=== PATIENT | male | born 1940 | race Caucasian/White ===

== ENCOUNTER 2017-10-20 12:12 | Observation (INO) | payer OTHER ==
[2017-10-20 13:01] LABS: Protime INR 0.99
[2017-10-20 13:11] LABS: Potassium 4.4 mEq/L (3.6-5.0)
[2017-10-20 13:17] LABS: Albumin 4.2 g/dL (3.2-5.5); Bilirubin Direct 0.1 mg/dL (0-0.2); Bilirubin Total 0.8 mg/dL (0.3-1.2); Magnesium 2.1 mg/dL (1.8-2.5); Protein, Total 7.2 g/dL (6.0-8.3)
[2017-10-20 13:41] LABS: Absolute Lymphocytes (CBC) 1.1 K/uL (0.7-4.9); Absolute Monocytes 0.7 K/uL (0.1-1.3); Basophils % 0.5 % (0-1.3); Eosinophils % 0.3 % (0-4.4); Hematocrit 41.6 % (39.6-49.0); Lymphocytes % 12.6 % (15.3-44.8); MCH 29.8 pg (27.0-35.0); MCV 90.5 fL (80-100); MPV 8.6 fL (7.6-11.3); Monocytes % 7.6 % (3.3-12.3)
--- NOTE | 2017-10-20 14:29 | RAD REPORT ---
EXAM DESCRIPTION: CT - Abdomen Pelvis W Contrast - 10/20/2017 2:00 pm CLINICAL HISTORY: Abdominal pain, nausea and vomiting COMPARISON: None. TECHNIQUE: Biphasic, helical CT imaging of the abdomen and pelvis was performed following 100 ml non -ionic IV contrast. Oral contrast was given. All CT scans are performed using dose optimization technique as appropriate and may include automated exposure control or mA/KV adjustment according to patient size. FINDINGS: No mass or infiltrate in the lung bases. No pericardial effusion. There is a trace amount of pleural thickening and parenchymal scarring. Liver and spleen show no suspicious parenchymal lesions. Numerous benign granulomatous type calcifica tions are present. No pancreatic mass or peripancreatic acute finding seen. Biliary tree is mildly pr ominent but not clearly outside of normal range. No pancreatic duct dilatation. Gallbladder is unrema rkable though gallstones can be occult. No pyelonephritis or acute renal parenchymal process. No adrenal suspicious finding. Partially filled urinary bladder shows no suspicious findings. Prostate gland and seminal vesicles are within normal limits. There are prostate calcifications and numerous pelvic floor phleboliths. No gastric dilatation or gastric wall thickening. No dilated large or small bowel. No appendicitis. M ild to moderate stool volume throughout the colon without active process seen. No free air, free flu id or inflammatory stranding. No mass or bulky lymphadenopathy. Fat extends into the origin of the l eft inguinal canal. Hydrocele is present on the right only partially imaged. A very small umbilical h ernia is present of no consequence. Delete select Prominent disc and bony degenerative changes are present. An acute or pathologic bone process not bev ntified. Vascular calcifications present without an acute vascular finding identifiable. IMPRESSION: No bowel obstruction, free air or other surgically emergent finding. Mild prominence of the biliary tree with unremarkable gallbladder. Gallstones can be occult. Biliary obstruction is doubtful without clinical or laboratory confirmation. No acute GI process.
--- NOTE | 2017-10-20 15:56 | RAD REPORT ---
EXAM DESCRIPTION: RAD - Chest Single View - 10/20/2017 1:16 pm CLINICAL HISTORY: Abdominal pain, nausea and vomiting C Web Developer malfunction precluded earlier written report COMPARISON: December 2016 TECHNIQUE: AP portable chest image was obtained 1309 hours . FINDINGS: No peripheral mass or consolidation. Lung markings are minimally increased over the prior study. This could be a minimal edema, infiltrate or progressive fibrotic process. Heart and vasculatu re are normal. No measurable pleural effusion and no pneumothorax. No gross bony abnormality seen. No acute aortic findings suspected. IMPRESSION: No mass, consolidation or significant failure. Lung markings are slightly increased over the comparison. This could be infiltrate, edema or less lik surinder progressive fibrosis.
--- NOTE | 2017-10-20 16:00 | RAD REPORT ---
EXAM DESCRIPTION: CT - Head Brain Wo Cont - 10/20/2017 3:36 pm CLINICAL HISTORY: Transient alteration of awareness COMPARISON: None. TECHNIQUE: Axial 5 mm thick images of the head were obtained without IV contrast. All CT scans are performed using dose optimization technique as appropriate and may include automated exposure control or mA/KV adjustment according to patient size. FINDINGS: No intracranial hemorrhage, mass, edema or shift of mid-line structures. No acute cortical based infarction. Minimal atrophy and chronic ischemic changes are noted. No abnormal extra-axial fl uid collections. Ventricles are normal. Contrast is present in the arteries and venous sinuses from e arlier contrast CT abdomen study. Mastoid air cells and visualized portions of the paranasal sinuses are clear. No acute bony findings. IMPRESSION: Negative non-contrast CT head examination for acute finding. Minimal atrophy and chroni c ischemic change noted.
[2017-10-20] MEDS ORDERED: ALBUTEROL 2.5 MG/3 ML NEB SOL NEB PRN (17:09)
[2017-10-20] MEDS ORDERED: ONDANSETRON 4 MG/2 ML VIAL IV PRN (17:09)
[2017-10-20] MEDS ORDERED: ACETAMINOPHEN 500 MG TAB PO PRN (17:09)
[2017-10-20] MEDS ORDERED: IPRATROPIUM BROM 0.5MG/2.5ML NEB PRN (17:09)
--- NOTE | 2017-10-20 17:09 | ER ---
Nurse's Notes [facility] Name: Gamaliel Stein Sr Age: 77 yrs Sex: Male : 1940 Arrival Date: 10/20/2017 Time: 12:17 Bed 6 Private MD: Diagnosis: Altered mental status, unspecified;Dehydration Presentation: 10/20 12:18 Presenting complaint: EMS states: PT C/O abd pain, nausea, vomiting, not feeling right la1 in head, BP was elevated in the 190s, no focal neurological deficits noted but pt seems lethargic. Transition of care: patient was not received from another setting of care. Onset of symptoms was October 20, 2017. Initial Sepsis Screen: Does the patient meet any 2 criteria? No. Patient's initial sepsis screen is negative. Does the patient have a suspected source of infection? No. Patient's initial sepsis screen is negative. Care prior to arrival: None. 12:18 Method Of Arrival: EMS: [facility] la1 12:18 Acuity: CAL 2 la1 Historical: - Allergies: 12:20 No Known Allergies; la1 - Home Meds: 17:46 metoprolol tartrate 50 mg Oral tab 1 tab once daily [Active]; aspirin 325 mg Oral TbEC la1 1 tab once daily [Active]; Fish Oil 1,000 mg Oral cap 2 cap daily [Active]; losartan-hydrochlorothiazide 100-12.5 mg Oral tab 1 tab once daily [Active]; Plavix 75 mg Oral tab 1 tab once daily [Active]; Ranexa 500 mg Oral Tb12 1 tab 2 times per day [Active]; rosuvastatin 10 mg Oral tab 1 tab once daily [Active]; - PMHx: 12:20 High Cholesterol; Hypertension; Myocardial infarction; la1 - Immunization history:: Adult Immunizations up to date. - Social history:: Smoking status: unknown. Screenin:22 Abuse screen: Denies threats or abuse. Nutritional screening: No deficits noted. la1 Tuberculosis screening: No symptoms or risk factors identified. Fall Risk None identified. Assessment: 12:21 General: Appears uncomfortable, Behavior is calm, cooperative. Pain: Complains of pain la1 in chest and abdomen. Neuro: Level of Consciousness is awake, alert, obeys commands, Oriented to person, place, time, situation. Cardiovascular: Heart tones S1 S2 Capillary refill < 3 seconds Patient's skin is warm and dry. Respiratory: Airway is patent Trachea midline Respiratory effort is even, unlabored, Respiratory pattern is regular, symmetrical, Breath sounds are clear bilaterally. GI: Abdomen is round obese, Bowel sounds present X 4 quads. Abd is soft X 4 quads Abd is non tender X 4 quads Reports nausea, vomiting. : No signs and/or symptoms were reported regarding the genitourinary system. 13:59 Reassessment: Patient appears in no apparent distress at this time. No changes from la1 previously documented assessment. Patient and/or family updated on plan of care and expected duration. Pain level reassessed. Patient is alert, oriented x 3, equal unlabored respirations, skin warm/dry/pink. 14:37 Reassessment: Patient and/or family updated on plan of care and expected duration. Pain hj level reassessed. Patient is alert, oriented x 3, equal unlabored respirations, skin warm/dry/pink. 15:14 Reassessment: Patient appears in no apparent distress at this time. No changes from la1 previously documented assessment. Patient and/or family updated on plan of care and expected duration. Pain level reassessed. Patient is alert, oriented x 3, equal unlabored respirations, skin warm/dry/pink. 16:05 Reassessment: Patient appears in no apparent distress at this time. No changes from la1 previously documented assessment. Patient and/or family updated on plan of care and expected duration. Pain level reassessed. Patient is alert, oriented x 3, equal unlabored respirations, skin warm/dry/pink. 16:37 Reassessment: Patient appears in no apparent distress at this time. No changes from la1 previously documented assessment. Patient and/or family updated on plan of care and expected duration. Pain level reassessed. Patient is alert, oriented x 3, equal unlabored respirations, skin warm/dry/pink. 17:47 Reassessment: Patient appears in no apparent distress at this time. No changes from la1 previously documented assessment. Patient and/or family updated on plan of care and expected duration. Pain level reassessed. Patient is alert, oriented x 3, equal unlabored respirations, skin warm/dry/pink. Awaiting room assignment VSS, all ED orders complete. 17:53 Reassessment: pt provided with HH diet. la1 19:12 Reassessment: Patient appears in no apparent distress at this time. Neuro: Level of lp1 Consciousness is awake, alert, obeys commands, Oriented to person, place, situation. Respiratory: Respiratory effort is even, unlabored. Derm: Skin is intact, Skin is dry, Skin is pale. Vital Signs: 12:23 BP 189 / 77; Pulse 63; Resp 25; Temp 98.4(TE); Pulse Ox 96% on R/A; la1 13:08 BP 166 / 69; Pulse 66; Resp 19; Pulse Ox 99% on R/A; la1 14:37 BP 164 / 68; Pulse 70; Resp 18; Pulse Ox 95% on R/A; hj 16:04 BP 157 / 73; Pulse 65; Resp 19; Pulse Ox 100% on R/A; la1 17:46 BP 170 / 70; Pulse 65; Resp 16; Pulse Ox 100% on R/A; la1 18:18 BP 164 / 73; Pulse 71; Resp 16; Pulse Ox 98% on R/A; la1 18:19 Weight 90.72 kg (R); la1 19:11 BP 152 / 61; Pulse 68; Resp 20; Temp 98.0(O); Pulse Ox 94% on R/A; lp1 NIH Stroke Scale Scores: 12:41 NIHSS Score: 0 [facility] ED Course: 12:17 Patient arrived in ED. la1 12:19 Triage completed. la1 12:20 Chauncey Panchal, RN is Primary Nurse. la1 12:20 Arm band placed on right wrist. EKG completed in triage. Results shown to MD. la1 12:23 Huber Jones PA is PHCP. jr8 12:23 Payam Fonseca MD is Attending Physician. jr8 12:23 Placed in gown. Bed in low position. Call light in reach. gambling monitor on. Pulse ox la1 on. NIBP on. 13:13 X-ray completed. Portable x-ray completed in exam room. la2 13:14 XRAY Chest (1 view) In Process Unspecified. EDMS 13:58 CT completed. Patient moved to CT via stretcher. Patient moved back from CT. ap2 14:00 CT Abd/Pelvis - W/Contrast In Process Unspecified. EDMS 15:36 CT Head Brain wo Cont In Process Unspecified. EDMS 15:36 CT completed. Patient moved to CT via stretcher. Patient moved back from CT. bq 16:38 Inserted saline lock: 22 gauge in right forearm, using aseptic technique. Blood la1 collected. 17:08 Drake Urias MD is Hospitalizing Provider. jr8 17:14 AMMONIA Sent. la1 17:21 UDS Sent. la1 19:11 No provider procedures requiring assistance completed. Patient admitted, IV remains in lp1 place. Administered Medications: No medications were administered Point of Care Testing: Blood Glucose: 12:55 Blood Glucose: 128 mg/dL; la1 Ranges: Outcome: 17:09 Decision to Hospitalize by Provider. jr8 19:11 Condition: stable lp1 19:11 Instructed on the need for admit, to patient and family at bedside 19:39 Admitted to Med/surg accompanied by nurse, via stretcher, room 211, with chart, Report lp1 called to MICHELE Nye 19:49 Patient left the ED. bb NIH Stroke Scale - NIH Stroke Score Date: 10/20/2017 Time: 12:41 Total Score = 0 1a. Level of Consciousness (LOC) - 0(Alert) 1b. Level of Consciousness (LOC) (Year \T\ Age) - 0(Both) 1c. LOC Commands (Open \T\ Closes Eyes/Local Delivery Driver) - 0(Both) 2. Best Gaze (Lateral Gaze Paresis) - 0(Normal) 3. Visual Field Loss - 0(No visual loss) 4. Facial Palsy - 0(Normal) 5a. Left Arm: Motor (10-second hold) - 0(No drift) 5b. Right Arm: Motor (10-second hold) - 0(No drift) 6a. Left Leg: Motor (5-second hold - always test supine) - 0(No drift) 6b. Right Leg: Motor (5-second hold - always test supine) - 0(No drift) 7. Limb Ataxia (finger/nose \T\ heel/borden - test with eyes open) - 0(Absent) 8. Sensory Loss (pinprick arms/legs/face) - 0(Normal) 9. Best Language: Aphasia (description/naming/reading) - 0(No aphasia) 10. Dysarthria (speech clarity - read or repeat words) - 0(Normal) 11. Extinction and Inattention (visual/tactile/auditory/spatial/personal) - 0(No abnormality) Initials: jr8 Signatures: Dispatcher [employer] Yajaira Becker Brenda RN RN Patti Wade RN RN lp1 Huber Jones PA PA jr8 Chauncey Panchal RN RN la1 Mulugeta Orozco RN RN Ana Carias la2 Jasmin Lim Corrections: (The following items were deleted from the chart) 20:10 19:39 Admitted to Med/surg accompanied by nurse, via wheelchair, room 211, with lp1 chart, Report called to MICHELE Nye lp1
--- NOTE | 2017-10-20 17:09 | EDPHYS ---
Physician Documentation [facility] Name: Gamaliel Stein Sr Age: 77 yrs Sex: Male : 1940 Arrival Date: 10/20/2017 Time: 12:17 Bed 6 Private MD: ED Physician Payam Fonseca HPI: 10/20 12:41 This 77 yrs old Male presents to ER via EMS with complaints of Abdominal jr8 Pain, Nausea/Vomiting, Fatigue. 12:41 The patient presents with abdominal pain that is diffuse. Onset: The symptoms/episode jr8 began/occurred acutely, today. The symptoms do not radiate. Associated signs and symptoms: Pertinent positives: nausea and vomiting. The symptoms are described as constant, dull. Modifying factors: The symptoms are alleviated by nothing, the symptoms are aggravated by nothing. Severity of pain: At its worst the pain was moderate in the emergency department the pain is unchanged. The patient has not experienced similar symptoms in the past. The patient has not recently seen a physician. Patient stated that he feels very weak and shaky. Has had abdominal pain with nausea on/off today. Called family earlier because he was not feeling well. Family stated that he seems altered. Slow to respond. Not acting appropriate. Usually very alert and responsive. Unknown onset . Historical: - Allergies: 12:20 No Known Allergies; la1 - Home Meds: 17:46 metoprolol tartrate 50 mg Oral tab 1 tab once daily [Active]; aspirin 325 mg Oral TbEC la1 1 tab once daily [Active]; Fish Oil 1,000 mg Oral cap 2 cap daily [Active]; losartan-hydrochlorothiazide 100-12.5 mg Oral tab 1 tab once daily [Active]; Plavix 75 mg Oral tab 1 tab once daily [Active]; Ranexa 500 mg Oral Tb12 1 tab 2 times per day [Active]; rosuvastatin 10 mg Oral tab 1 tab once daily [Active]; - PMHx: 12:20 High Cholesterol; Hypertension; Myocardial infarction; la1 - Immunization history:: Adult Immunizations up to date. - Social history:: Smoking status: unknown. ROS: 12:41 Eyes: Negative for injury, pain, redness, and discharge, ENT: Negative for injury, jr8 pain, and discharge, Neck: Negative for injury, pain, and swelling, Cardiovascular: Negative for chest pain, palpitations, and edema, Respiratory: Negative for shortness of breath, cough, wheezing, and pleuritic chest pain, Back: Negative for injury and pain, MS/Extremity: Negative for injury and deformity, Skin: Negative for injury, rash, and discoloration, Neuro: Negative for headache, weakness, numbness, tingling, and seizure. Positive for AMS 12:41 Constitutional: Positive for fatigue, malaise. 12:41 Abdomen/GI: Positive for abdominal pain, nausea and vomiting, Negative for diarrhea, constipation, anorexia, dysphagia, hematemesis, black/tarry stool, rectal pain, rectal bleeding, bowel incontinence, flatulence. Exam: 12:41 Eyes: Pupils equal round and reactive to light, extra-ocular motions intact. Lids and jr8 lashes normal. Conjunctiva and sclera are non-icteric and not injected. Cornea within normal limits. Periorbital areas with no swelling, redness, or edema. ENT: Nares patent. No nasal discharge, no septal abnormalities noted. Tympanic membranes are normal and external auditory canals are clear. Oropharynx with no redness, swelling, or masses, exudates, or evidence of obstruction, uvula midline. Mucous membranes moist. Neck: Trachea midline, no thyromegaly or masses palpated, and no cervical lymphadenopathy. Supple, full range of motion without nuchal rigidity, or vertebral point tenderness. No Meningismus. Cardiovascular: Regular rate and rhythm with a normal S1 and S2. No gallops, murmurs, or rubs. Normal PMI, no JVD. No pulse deficits. Respiratory: Lungs have equal breath sounds bilaterally, clear to auscultation and percussion. No rales, rhonchi or wheezes noted. No increased work of breathing, no retractions or nasal flaring. Back: No spinal tenderness. No costovertebral tenderness. Full range of motion. Skin: Warm, dry with normal turgor. Normal color with no rashes, no lesions, and no evidence of cellulitis. MS/ Extremity: Pulses equal, no cyanosis. Neurovascular intact. Full, normal range of motion. 12:41 Abdomen/GI: Inspection: distension, that is mild, Bowel sounds: active, all quadrants, Palpation: soft, in all quadrants, mild abdominal tenderness, in the abdomen diffusely, mass, is not appreciated, rebound tenderness, is not appreciated, voluntary guarding, is not appreciated, involuntary guarding, is not appreciated, no appreciated organomegaly, Indicators: McBurney's point is not tender, Pedersen's sign is negative, Rovsing's sign is negative, Liver: tenderness, is not appreciated. 12:41 Neuro: Orientation: to person, place, Mentation: able to follow commands, slow to jr8 respond, sleepy, Memory: immediate memory is intact, remote memory is intact. recent memory is intact, Cranial nerves: CN I not tested, CN II- XII are normal as tested, extraocular movements are intact, Facial palsy and sensory deficits are absent. Nystagmus is absent. Speech is slowed, Tongue strength is normal, Cerebellar function: normal finger to nose testing, heel to borden testing is normal, Motor: moves all fours, strength is 5/5 in all extremities, Sensation: no obvious gross deficits, Gait: not tested. seizure activity, is not displayed by the patient, Abnormal movements: resting tremor, is located in the right arm and left arm. Vital Signs: 12:23 BP 189 / 77; Pulse 63; Resp 25; Temp 98.4(TE); Pulse Ox 96% on R/A; la1 13:08 BP 166 / 69; Pulse 66; Resp 19; Pulse Ox 99% on R/A; la1 14:37 BP 164 / 68; Pulse 70; Resp 18; Pulse Ox 95% on R/A; hj 16:04 BP 157 / 73; Pulse 65; Resp 19; Pulse Ox 100% on R/A; la1 17:46 BP 170 / 70; Pulse 65; Resp 16; Pulse Ox 100% on R/A; la1 18:18 BP 164 / 73; Pulse 71; Resp 16; Pulse Ox 98% on R/A; la1 18:19 Weight 90.72 kg (R); la1 19:11 BP 152 / 61; Pulse 68; Resp 20; Temp 98.0(O); Pulse Ox 94% on R/A; lp1 NIH Stroke Scale Scores: 12:41 NIHSS Score: 0 jr8 MDM: 12:23 Patient medically screened. jr8 15:16 ED course: Patient after being reevaluated is now more responsive. Does not remember a jr8 lot of what we talked about earlier. 17:08 Data reviewed: vital signs, nurses notes, lab test result(s), EKG, radiologic studies, [facility] CT scan, ultrasound, and as a result, I will admit patient. Data interpreted: Pulse oximetry: on room air is 100 %. Interpretation: normal. Counseling: I had a detailed discussion with the patient and/or guardian regarding: the historical points, exam findings, and any diagnostic results supporting the discharge/admit diagnosis, lab results, radiology results, the need for further work-up and treatment in the hospital. Physician consultation: Drake Urias MD was called at 17:08, was contacted at 17:08, regarding admission, to the telemetry unit. consult, patient's condition, and will see patient in ED. 10/20 12:24 Order name: Basic Metabolic Panel; Complete Time: 13:10/20 12:24 Order name: BNP; Complete Time: 14:20 10/20 12:24 Order name: CBC with Diff; Complete Time: 13:49 10/20 12:24 Order name: CPK; Complete Time: 13:10/20 12:24 Order name: LFT's; Complete Time: 13:10/20 12:24 Order name: Magnesium; Complete Time: 13:10/20 12:24 Order name: PT-INR; Complete Time: 13:09 10/20 12:24 Order name: Troponin (emerg Dept Use Only); Complete Time: 13:49 10/20 12:24 Order name: XRAY Chest (1 view); Complete Time: 16:02 10/20 12:24 Order name: Flu; Complete Time: 13:10/20 12:24 Order name: Lipase; Complete Time: 13:10/20 15:38 Order name: Urine Dipstick--Ancillary (enter results); Complete Time: 06:22 eb 10/20 17:05 Order name: AMMONIA; Complete Time: 17:58 la1 10/20 17:09 Order name: UDS; Complete Time: 17:35 10/20 12:24 Order name: EKG; Complete Time: 12:24 10/20 12:24 Order name: Cardiac monitoring; Complete Time: 12:31 10/20 12:24 Order name: EKG - Nurse/Tech; Complete Time: 12:31 10/20 12:24 Order name: IV Saline Lock; Complete Time: 12:48 10/20 12:24 Order name: Labs collected and sent; Complete Time: 12:48 10/20 12:24 Order name: O2 Per Protocol; Complete Time: 12:10/20 12:24 Order name: O2 Sat Monitoring; Complete Time: 12:10/20 12:24 Order name: Urine Dipstick-Ancillary (obtain specimen); Complete Time: 17:04 10/20 13:22 Order name: CT Abd/Pelvis - W/Contrast; Complete Time: 14:30 10/20 15:12 Order name: CT Head Brain wo Cont; Complete Time: 16:02 10/20 17:15 Order name: Heart Healthy EDPA 10/20 17:15 Order name: Physical Therapy Consult EDMS Administered Medications: No medications were administered Point of Care Testing: Blood Glucose: 12:55 Blood Glucose: 128 mg/dL; la1 Ranges: Critical Glucose Levels:Adult <50 mg/dl or >400 mg/dl <40 mg/dl or >180 mg/dl Disposition: 10/21 12:46 Co-signature as Attending Physician, Payam Fonseca MD. Disposition: 10/20/17 17:09 Hospitalization ordered by Drake Urias for Observation. Preliminary diagnosis are Altered mental status, unspecified, Dehydration. - Bed requested for Telemetry/MedSurg (observation). - Status is Observation. bb - Condition is Stable. - Problem is new. - Symptoms have improved. UTI on Admission? No NIH Stroke Scale - NIH Stroke Score Date: 10/20/2017 Time: 12:41 Total Score = 0 1a. Level of Consciousness (LOC) - 0(Alert) 1b. Level of Consciousness (LOC) (Year \T\ Age) - 0(Both) 1c. LOC Commands (Open \T\ Closes Eyes/Data Center Operator) - 0(Both) 2. Best Gaze (Lateral Gaze Paresis) - 0(Normal) 3. Visual Field Loss - 0(No visual loss) 4. Facial Palsy - 0(Normal) 5a. Left Arm: Motor (10-second hold) - 0(No drift) 5b. Right Arm: Motor (10-second hold) - 0(No drift) 6a. Left Leg: Motor (5-second hold - always test supine) - 0(No drift) 6b. Right Leg: Motor (5-second hold - always test supine) - 0(No drift) 7. Limb Ataxia (finger/nose \T\ heel/borden - test with eyes open) - 0(Absent) 8. Sensory Loss (pinprick arms/legs/face) - 0(Normal) 9. Best Language: Aphasia (description/naming/reading) - 0(No aphasia) 10. Dysarthria (speech clarity - read or repeat words) - 0(Normal) 11. Extinction and Inattention (visual/tactile/auditory/spatial/personal) - 0(No abnormality) Initials: jr8 Signatures: Dispatcher [employer] EDSamantha Martinez RN RN dw Ballard, Brenda, RN RN bb Roszak, Josh, PA PA jr8 Chauncey Panchal RN RN laPayam Schwartz MD MD gs Botello, Elizabeth eb Corrections: (The following items were deleted from the chart) 10/20 15:13 12:41 Patient stated that he feels very weak and shaky. Has had abdominal pain jr8 with nausea on/off today. Called family earlier because he was not feeling well . jr8 15:13 12:41 Eyes: Negative for injury, pain, redness, and discharge, ENT: Negative jr8 for injury, pain, and discharge, Neck: Negative for injury, pain, and swelling, Cardiovascular: Negative for chest pain, palpitations, and edema, Respiratory: Negative for shortness of breath, cough, wheezing, and pleuritic chest pain, Back: Negative for injury and pain, MS/Extremity: Negative for injury and deformity, Skin: Negative for injury, rash, and discoloration, Neuro: Negative for headache, weakness, numbness, tingling, and seizure, jr8 15:15 12:41 Eyes: Pupils equal round and reactive to light, extra-ocular motions jr8 intact. Lids and lashes normal. Conjunctiva and sclera are non-icteric and not injected. Cornea within normal limits. Periorbital areas with no swelling, redness, or edema. ENT: Nares patent. No nasal discharge, no septal abnormalities noted. Tympanic membranes are normal and external auditory canals are clear. Oropharynx with no redness, swelling, or masses, exudates, or evidence of obstruction, uvula midline. Mucous membranes moist. Neck: Trachea midline, no thyromegaly or masses palpated, and no cervical lymphadenopathy. Supple, full range of motion without nuchal rigidity, or vertebral point tenderness. No Meningismus. Cardiovascular: Regular rate and rhythm with a normal S1 and S2. No gallops, murmurs, or rubs. Normal PMI, no JVD. No pulse deficits. Respiratory: Lungs have equal breath sounds bilaterally, clear to auscultation and percussion. No rales, rhonchi or wheezes noted. No increased work of breathing, no retractions or nasal flaring. Back: No spinal tenderness. No costovertebral tenderness. Full range of motion. Skin: Warm, dry with normal turgor. Normal color with no rashes, no lesions, and no evidence of cellulitis. MS/ Extremity: Pulses equal, no cyanosis. Neurovascular intact. Full, normal range of motion. Neuro: Awake and alert, GCS 15, oriented to person, place, time, and situation. Cranial nerves II-XII grossly intact. Motor strength 5/5 in all extremities. Sensory grossly intact. Cerebellar exam normal. Normal gait. jr8
[2017-10-20 17:34] LABS: Barbiturates NEGATIVE; Benzodiazepines NEGATIVE; Cocaine NEGATIVE; METHAMPHETAM NEGATIVE; Opiates NEGATIVE; Phencyclidine NEGATIVE; THC Cannibis NEGATIVE
[2017-10-20 19:00] LABS: Urine Blood NEGATIVE (NEG); Urine Glucose NEGATIVE (NEG); Urine Protein NEGATIVE (NEG); Urine pH 5.5 (5.0-7.0)
[2017-10-20 20:59] VITALS: BMI 29.3
[2017-10-20] MEDS: NA CHLORIDE 0.9% 1,000 ML IV SCH (22:33)
--- NOTE | 2017-10-21 03:13 | HP ---
Date of Admission: 10/20/2017 Chief Complaint: Altered mental status. Code Status: Full. History Of Present Illness: The patient is a 77-year-old male with past medical history of sick sinus syndrome, status post pacemakers, coronary artery disease, hypertension, dyslipidemia, valvular heart disease, cerebrovascular disease, who was in his usual state of health until day of admission when the patient was found to be confused. The patient states that he was watching TV and felt unusual. He was unable to describe his symptoms but states that he was mildly confused. He was having some chills recently and also had a some blood in his stool. The patient denies any fevers. No nausea, vomiting, chest pain, or shortness of breath. The patient was unable to get up and felt lethargic. He contacted his daughter and EMS was called. The patient otherwise denies any syncopal episode or fall or any loss of consciousness. His symptoms are constant, moderate, progressively worsening. No alleviating or aggravating factors. In the ER, his vital signs were stable. He was afebrile. However, he was very much confused, unable to give much of a history. The patient's workup was essentially negative. The patient was then referred for admission for altered mental status. CT scan of the head was done , which did not show any acute changes. CT scan of the abdomen was also done, which did not show any acute changes either. It did show some mild prominence of the biliary tree with unremarkable gallbladder. When the patient was seen in the ER, he was awake, alert, oriented x3, in some mild distress. Past Medical History: Sick sinus syndrome, status post pacemaker, cerebrovascular disease, valvular heart disease, hypertension, dyslipidemia, coronary artery disease. Allergies: NO KNOWN DRUG ALLERGIES. Medications: Reviewed. Family History: Diabetes. Social History: The patient lives by himself. Denies any tobacco use. The patient was a heavy alcohol drinker for many years. Quit several years ago. The patient is able to take care of his activities of daily living. Still drives. The patient has good social support. Has one daughter. Review of Systems: Ten point system reviewed, negative except as per HPI. Physical Examination: Vital Signs: Stable, afebrile. General: Awake, alert, oriented x3, elderly male, ill-appearing, lethargic, obese. HEENT: Normocephalic, atraumatic. PERRLA. EOMI. Dry mucous membranes. Oropharynx is clear. Conjunctiva is anicteric. Poor dentition. Neck: Supple. No JVD. Trachea midline. CV: S1, S2. Regular rate and rhythm. Peripheral pulses are weak bilaterally. Respiratory: Moving air well bilaterally. Some mild wheezing is heard. No stridor or use of accessory muscles. Gastrointestinal: Abdomen is soft, nondistended, nontender. Positive bowel sounds. No guarding or rigidity. No hepatomegaly appreciated. Extremities: No clubbing, cyanosis, or edema. No calf tenderness. Skin: The patient has very dry excoriated skin on the lower extremities. No rashes. Normal skin turgor. Neurologic: Cranial nerves 2 through 12 intact grossly. No focal neurological deficits. Strength is 5/5 in bilateral upper and lower extremities. Sensation is decreased to light touch in the lower extremities. Rapid alternating hand movement is abnormal. Yvjsod-cf-mjam test is delayed. The patient does have asterixis. No meningeal signs. Psych: Mood is okay. Affect is flat. Insight and judgment are fair. Laboratory Data: Sodium 137, potassium 4.4, chloride 103, CO2 of 28. BUN 22, creatinine 1.04, glucose 140, calcium 9.1, magnesium 2.1, total bilirubin 0.8. AST 30, ALT 24, alkaline phosphatase 37. CK 125, troponin less than 0.03. BNP 166. Albumin 4.2, lipase 21. INR 0.99. WBC 8.9, H and H 13.7 and 41.6, platelets 130, neutrophils 79%. UA pending. Imaging Studies: Abdominal CT pelvis with contrast shows no bowel obstruction, free air, or other surgically emergent finding. Mild prominence of the biliary tree with unremarkable gallbladder. Gallstones can be occult. Biliary obstruction is doubtful without clinical or laboratory confirmation. No acute GI process. Head CT scan shows negative noncontrast CT head examination for acute finding. Minimal atrophy and chronic ischemic change noted. Chest x-ray shows no mass, consolidation, or significant failure, lung markings slightly increased over the comparison, could be infiltrate, edema, or less likely progressive fibrosis. Assessment And Plan: A 77-year-old male with; 1. Acute metabolic encephalopathy, unclear etiology. We will follow up on urinalysis. No acute signs of infection. The patient does have a long history of alcohol abuse and may have some underlying liver disease. CT scan of the abdomen does show numerous benign granulomatous type calcifications. We will obtain ammonia level. Check RPR, vitamin B12, and folate levels. 2. Neuropathy. 3. Coronary artery disease. Ramona artery and [facility] [place] heart without angina. 4. Essential hypertension, stable. 5. Hyperlipidemia, stable. 6. Gastrointestinal bleed. The patient does report some blood with his stool several days ago. We will obtain stool occult blood and monitor H and H. currently, the patient is not anemic. 7. Thrombocytopenia. We will monitor platelets. 8. Hyperglycemia, likely acute phase reactant. We will monitor. 9. Sick sinus syndrome, status post pacemaker. 10. Valvular heart disease. Plan: GI and DVT prophylaxis with PPI. No Lovenox due to GI bleed. We will place SCDs. We will check ammonia level and UDS. We will check RPR. We will place as observation and monitor closely. 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
[2017-10-21] MEDS: NA CHLORIDE 0.9% 1,000 ML IV SCH ×2 (05:06→14:42)
[2017-10-21 05:42] LABS: RPR Titer ND
[2017-10-21 06:29] LABS: Albumin 4.2 g/dL (3.2-5.5); Folic Acid, (Folate) 14.4 ng/ml (>5.21); Potassium 4.2 mEq/L (3.6-5.0); Protein, Total 6.6 g/dL (6.0-8.3)
[2017-10-21] MEDS ORDERED: PANTOPRAZOLE 40MG TABLET PO SCH (06:30)
[2017-10-21 06:55] LABS: Absolute Lymphocytes (CBC) 1.5 K/uL (0.7-4.9); Absolute Neutrophil 4.7 K/uL (1.8-8.0); Basophils % 0.1 % (0-1.3); Eosinophils % 0.2 % (0-4.4); Hematocrit 40.9 % (39.6-49.0); Lymphocytes % 20.3 % (15.3-44.8); MCH 30.6 pg (27.0-35.0); MCV 90.7 fL (80-100); MPV 8.4 fL (7.6-11.3); Monocytes % 13.3 % (3.3-12.3); RBC Red Blood Cell Count 4.51 M/uL (4.33-5.43)
--- NOTE | 2017-10-21 07:18 | EKG ---
Test Date: 2017-10-20 Test Time: 12:17:37 Construction Project Coordinator: HORTENCIA MEASUREMENT RESULTS: Intervals: Rate: 63 AR: 194 QRSD: 108 QT: 464 QTc: 474 Nunez: P: 78 AR: 194 QRS: -11 T: 7 INTERPRETIVE STATEMENTS: Normal sinus rhythm Normal ECG Compared to ECG 01/08/2017 06:52:45 Ventricular premature complex(es) no longer present ST (T wave) deviation no longer present Electronically Signed On 10-21-17 07:17:26 CDT by Augustin Jones
[2017-10-21] MEDS ORDERED: PNEUMOCOCCAL VACCINE 0.5 ML IMVAC ONE (08:00)
[2017-10-21] MEDS ORDERED: HYDROCHLOROTHIAZIDE PO SCH (09:00)
[2017-10-21] MEDS ORDERED: LOSARTAN POTASSIUM 50 MG TABLET PO SCH (09:00)
[2017-10-21] MEDS ORDERED: HOME MED 1 EA UNK (Losartan/Hydrochlorothiazide [Losartan-Hctz 100-12.5 Mg Tab] 1 EACH) PO SCH (09:00)
[2017-10-21] MEDS ORDERED: hydroCHLOROthiazide 12.5 MG CAP PO SCH ×2 (09:00)
[2017-10-21] MEDS ORDERED: ROSUVASTATIN 10 MG TAB PO SCH (09:00)
[2017-10-21] MEDS ORDERED: METOPROLOL XL 50 MG TAB PO SCH (09:00)
[2017-10-21] MEDS ORDERED: ASPIRIN EC 325 MG TABLET PO SCH (09:00)
[2017-10-21] MEDS ORDERED: CLOPIDOGREL 75 MG TABLET PO SCH (09:00)
[2017-10-21] MEDS ORDERED: METOPROLOL SUCCINATE PO SCH (09:00)
[2017-10-21 13:28] VITALS: BP 174/73; TEMP 98.7
[2017-10-21 17:06] VITALS: O2SAT 93
--- NOTE | 2017-10-21 21:10 | CON ---
Time: 1509. Reason: Altered mental status. History: A 77-year-old gentleman with multiple medical problems, sick sinus syndrome, pacemaker plac ement, valvular heart disease, hypertension, hyperlipidemia, coronary disease. He was in his usual s [place] of health until yesterday. He woke. He was fine and then about 11 a.m., developed general sens ation of not feeling well with associated confusion and shaking to his extremities. Primarily the up per extremities were shaky and seems ataxic with prominent gait difficulties. EMS was summoned. He was brought to the emergency department, where evaluation there was largely unrevealing other than th e confusion. CT scan of the brain, atrophy, chronic ischemic change, standard labs normal. He was a dmitted for observation and symptom has essentially resolved overnight. Consultation was requested. Past Medical History: As alluded to. Medications: Losartan, HCTZ, fish oil, Plavix, aspirin, metoprolol, Ranexa, and Crestor 10. Social History: Lives alone. No longer smokes. Normally independent activities daily living. Family History: Significant for DVT in his daughter and cerebral hemorrhage in his father. Review of Systems: He had a slight headache with this event as well. Eyes: Denies. Ears, Nose, Throat: No dysarthria. Cardiovascular: Hypertension, sick sinus syndrome. Pulmonary: Negative. GI: Negative. : Negative. Musculoskeletal: Negative. Neurologic: As noted. Psychiatric: Negative. Endocrine: Negative. Hematologic: Negative. Physical Examination: Vital Signs: Temperature 97.8, heart rate 65, respirations 18, blood pressure 174/73. General: He is a pleasant gentleman, lying in bed, in no distress. Heart: Sinus rhythm. Lungs: Clear. Abdomen: Soft. Bowel sounds present. Neurologic: He is awake, alert, oriented to time, person, place, and situation. Pupils reactive. O cular motion full. Condon full. Facial strength sensation normal. Tongue protrudes evenly. Soft p alate elevates symmetrically bilaterally. Extremity strength full. Sensation intact. Reflexes 1/4 toes are downgoing. No [id number] ataxia. Pertinent Laboratory Data: CT as noted. EKG was sinus rhythm. Urine drug screen negative. Chest x -ray, no acute changes. White count 7.2, platelets 130. Hemoglobin and hematocrit normal. PT/PTT n ormal. Electrolytes normal. Ammonia 18. B12, folate normal. UA normal. RPR pending but titer not done suggesting RPR is negative as well. Impression: Probable limb shaking transient ischemic attack. Plan: I would increase the Crestor to 20. Otherwise he stable to be discharged. He is going to sta y with his daughter for a few days. He could have outpatient EEG to complete the evaluation. Thank you for the consult. FRANCIS Voice ID: [id number] Report ID: [id number]
[2017-10-21 22:11] LABS: RPR (Rapid Plasma Reagin) NON-REACT (NON-REACT)
--- NOTE | 2017-10-22 13:46 | DS ---
Date of Discharge: 10/21/2017 [employer]: Dr. Ny with Neurology. Admitting Diagnoses: 1.Acute metabolic encephalopathy, unclear etiology. 2.Neuropathy. 3.Coronary artery disease, [place] artery and [place] heart without angina. 4.Essential hypertension. 5.Hyperlipidemia. 6.Gastrointestinal bleed. 7.Thrombocytopenia. 8.Hyperglycemia. 9.Sick sinus syndrome, status post pacemaker. 10.Valvular heart disease. Discharge Diagnoses: 1.Acute metabolic encephalopathy, resolved. 2.Neuropathy. 3.Coronary artery disease, [place] artery and [place] heart without angina, stable. 4.Essential hypertension, stable. 5.Hyperlipidemia, stable. 6.Gastrointestinal bleed. No recurrent bleed. H and H are stable. 7.Thrombocytopenia, stable. 8.Hyperglycemia, improved. 9.Sick sinus syndrome, status post pacemaker. 10.Valvular heart disease. Hospital Course: The patient is a 77-year-old male, who comes in with altered mental status. The kamran hough was worked up for altered mental status. He had normal white blood cell count. No source of i nfection. UA was negative. Chest x-ray did not show any acute changes. His UDS was negative as wel l. RPR titer is pending. His ammonia level was also negative. No chest pain. Negative troponin. The patient was given IV fluids. His influenza screen was also negative. He did improve with treatm ent. His mental status and general condition improved. He was no longer confused. He was able to a mbulate without any difficulty. He is tolerating his diet. The patient was also seen by Neurology, Dr. Ny. CT scan of the brain was done, which was negative for any acute changes. MRI of the brai n unable to be done due to pacemaker, which is not MRI compatible. The patient also had CT scan of t he abdomen and pelvis done, which did not show any emergent findings, only some mild prominence of bi liary tree with unremarkable gallbladder. The patient was then cleared for discharge and was sent ho co in a stable condition. Activity: Fall precautions. Diet: Heart healthy. Followup: Follow up with primary care physician in 2-3 days. Follow up with neurologist, Dr. Ny in 2 weeks. Follow up with Cardiology, Dr. Jean in 1 week. Return to ER for worsening condition. Medications: As per medication reconciliation list. Physical Examination: General: Awake, alert, oriented x3. No acute distress, elderly male. CV: S1, S2. No murmurs. Peripheral pulses present. Respiratory: Moving air well bilaterally. No wheezing. Gastrointestinal: Abdomen is soft, nontender, and nondistended. Positive bowel sounds. Extremities: No clubbing, cyanosis, or edema. Neurologic: Nonfocal. SA/MODL Voice ID: [id number] Report ID: [id number]
== END 2017-10-21 18:10 | disposition home or self-care (01) ==
LOC: ER 12:12 → ERHOLD 17:09 → 2ND 19:16
PROVIDERS: ADMIT Family Medicine; ATTEND Family Medicine
DX: G93.41 Metabolic encephalopathy (principal); G62.9 Polyneuropathy, unspecified; I25.10 Atherosclerotic heart disease of native coronary artery without angina pectoris; I10 Essential (primary) hypertension; E78.5 Hyperlipidemia, unspecified; K92.1 Melena; D69.6 Thrombocytopenia, unspecified; I49.5 Sick sinus syndrome; I38 Endocarditis, valve unspecified; R73.9 Hyperglycemia, unspecified; Z86.73 Personal history of transient ischemic attack (TIA), and cerebral infarction without residual deficits; Z95.0 Presence of cardiac pacemaker
CPT/HCPCS: 36415; 70450; 71045; 74177; 80048; 80053; 80076; 80307; 81003; 82140; 82550; 82607; 82746; 82962; 83690; 83735; 83880; 84484; 85025; 85610; 86592; 87804; 90670; 93005; 94760; 97163; 99285; G0378; J7030; Q9967